=== PATIENT | female | born 1995 | race Caucasian/White ===

== ENCOUNTER 2017-01-27 21:06 | Emergency (ER) | payer OTHER ==
--- NOTE | ~2017-01-27 | CR72 ---
[facility]. [facility] A Service of [facility] & [facility] RADIOLOGY TEXT RESULTS PATIENT: LORNA SARAVIA LOCATION: SED : [birth year] UNIT #: [id number] AGE: [address]: LYNN GORMAN SEX: F ORDER DR: [id number] [place] [id number] E MR#: [id number] Acc #: [id number] NAME: LORNA SARAVIA : 1995 SEX: F STUDY DATE/TIME: 01/27/2017 22:07 UNIT: SED ROOM: STUDY DESCRIPTION: CR Chest Single View Portable Attending Physician: Lynn Gorman Ordering Physician: Hellen Dias A.P.R.N. Primary Care Physician: Primary Care Physician No MEDICAL IMAGING REPORT This report is preliminary unless electronic signature is present. EXAM Portable AP view of the chest COMPARISON February 28, 2015, December 29, 2011 and December 13, 2010. INDICATIONS 21-year-old female with fever, cough, chest congestion, wheezing and chest pain for 2 days. FINDINGS Prominent soft tissue shadows are again noted over both lung bases. No evidence of pneumothorax, pleural effusion or acute airspace disease. Cardiomediastinal silhouette is normal. IMPRESSION No acute radiographic abnormality. Dictated by... Keshawn Broussard M.D. THIS IS AN ELECTRONICALLY VERIFIED REPORT Keshawn Broussard M.D. at 01/30/2017 8:57 AM Gorge TD: 01/28/2017 08:47 JOB #: [id number] MEDICAL IMAGING REPORT
[2017-01-27 20:35] LABS: INFLUENZA A NEG (NEG); INFLUENZA B NEG (NEG)
[~2017-01-27 21:06] MED LIST: ALBUTEROL INH; ALBUTEROL17 GM INH; AMOXICILLIN500 M1 PO; AUGMENTIN; BACITRACIN30 GM TOP; BACTRIM DS TABL1 TAB PO; IBUPROFEN PO; LORTAB 5-325 M1 EACH; MEDROL4 MG/DOSE- PO; NO MEDICATIONS; PHENERGAN/CODEINE PO; PHENERGAN25 M1 PO; PREDNISONE PO; VOLTAREN75 MG PO; ZITHROMAX PO; ZOFRAN ODT4 MG/UDTAB PO
== END 2017-01-27 23:22 | disposition home or self-care (01) ==
LOC: SED 21:06
PROVIDERS: Emergency Medicine
DX: J20.9 Acute bronchitis, unspecified (principal); H66.91 Otitis media, unspecified, right ear
CPT/HCPCS: 36415; 71010; 87651; 87804; 87880; 96361; 96374; 99284; J1100

== ENCOUNTER 2017-03-07 12:35 | Emergency (ER) | payer OTHER ==
[2017-08-27] MEDS ORDERED: BIRTH CONTROL PILL PO (21:10)
== END 2017-03-07 13:16 | disposition home or self-care (01) ==
LOC: SED 12:35
DX: H10.31 Unspecified acute conjunctivitis, right eye (principal)
CPT/HCPCS: 99283